=== PATIENT | female | born 1935 | race Caucasian/White ===

== ENCOUNTER 2021-08-28 10:51 | Emergency (ER) | payer OTHER, MEDICARE ==
--- OUTSIDE RECORDS SUMMARY | 2021-08-28 10:57 | XMS REPORT | Continuity of Care Document ---
:1935 Author Organization [facility] t Address [address] [place] [address] Dr. Silverman [address] [place] [address] Care Team Providers Name Role Phone EMANUEL Attending Clinician Unavailable Problems This patient has no known problems. Allergies, Adverse Reactions, Alerts This patient has no known allergies or adverse reactions. Medications This patient has no known medications. Procedures This patient has no known procedures. Encounters Start End Encounter Admission Attending Care Care Encounter Source Date/Time Date/Time Type Type Clinicians Facility Department ID 2021-05-30 2021-05-30 Outpatient [facility] [id number] [place] 00:00:00 00:00:[address] 2021-02-13 2021-02-13 Outpatient [facility] [id number] [place] 00:00:00 00:00:00 MOH[place] [address] 2020-09-21 2020-09-21 Outpatient [facility] [id number] [place] 00:00:00 00:00:[address] 2020-08-29 2020-08-29 Outpatient [facility] [id number] [place] 00:00:00 00:00:[address] 2019-12-14 2019-12-14 Outpatient [facility] [id number] [place] 00:00:00 00:00:00 [place] Results This patient has no known results.
--- NOTE | 2021-08-28 12:19 | RAD REPORT ---
EXAM DESCRIPTION: RAD - Chest Single View - 08/28/2021 12:04 pm CLINICAL HISTORY: COUGH Chest pain. COMPARISON: Chest Pa And Lat (2 Views) dated 02/24/2017 FINDINGS: Portable technique limits examination quality. Mild diffuse COPD is present. Small nodule is present left mid lung laterally, new since 2017. The he art is normal in size. Right-sided venous catheter has tip in the SVC. IMPRESSION: Small nodule is present in the left mid lung laterally, appearing new since 2017. Noneme rgent CT chest followup is recommended.
[2021-08-28] MEDS ORDERED: NA CHLORIDE 0.9% 1,000 ML ONE (12:26)
--- NOTE | 2021-08-28 12:27 | RAD REPORT ---
EXAM DESCRIPTION: RAD - C Spine Ap/Lat - 08/28/2021 12:04 pm CLINICAL HISTORY: PAIN COMPARISON: No comparisons FINDINGS: Cervical bodies are normal in height.2 mm degenerative anterolisthesis of C6 on 7.No fract ure or acute bony process seen.Moderate cervical degenerative change with disc thinning and posterior osteophyte involving the lower cervical levels. No prevertebral soft tissue thickening or other suspicious soft tissue finding. The odontoid is normal lateral masses are symmetric. Right-sided catheter tubing is present in the ne ck. IMPRESSION: Moderate lower cervical degenerative changes.
[2021-08-28 12:34] LABS: Absolute Lymphocytes (CBC) 1.1 K/uL (0.7-4.9); Hematocrit 49.7 % (36.0-45.0); Lymphocytes % 9.6 % (15.3-44.8); MPV 8.1 fL (7.6-11.3); RBC Red Blood Cell Count 5.71 M/uL (3.86-4.86)
[2021-08-28 12:45] LABS: Potassium 3.7 mmol/L (3.5-5.1)
[2021-08-28 13:07] LABS: SARS-COV-2 RT PCR POSITIVE (NEGATIVE)
[2021-08-28 13:57] LABS: Urine Blood Trace-intact (Negative); Urine Glucose Negative (Negative); Urine Protein Trace (Negative); Urine Specific Gravity >=1.030 (1.005-1.030)
--- NOTE | 2021-08-28 13:58 | ER ---
Nurse's Notes [facility] Name: Micaela Lancaster Age: 86 yrs Sex: Female : 1935 Arrival Date: 08/28/2021 Time: 10:58 Bed 12 Private MD: Froest Craig Diagnosis: SARS-associated coronavirus as the cause of diseases classified elsewhere;Dehydration;Myalgia Presentation: 08/28 11:11 Chief complaint: Patient states: No appetite for 3 days. Pain all over, fatigue, weak ll1 for 3 days. No known fever. No N/V/D. Coronavirus screen: Vaccine status: Patient reports receiving the 2nd dose of the covid vaccine. Client denies travel out of the [place] in the last 14 days. fatigue, muscle pain, Client presents with at least one sign or symptom that may indicate coronavirus-19. Standard/surgical mask placed on the client. Ebola Screen: Patient denies travel to an Ebola-affected area in the 21 days before illness onset. Initial Sepsis Screen: Does the patient meet any 2 criteria? No. Patient's initial sepsis screen is negative. Does the patient have a suspected source of infection? No. Patient's initial sepsis screen is negative. Risk Assessment: Do you want to hurt yourself or someone else? Patient reports no desire to harm self or others. Onset of symptoms was August 26, 2021. 11:11 Method Of Arrival: Wheelchair ll1 11:11 Acuity: ELVIRA 3 ll1 Triage Assessment: 14:13 General: Appears in no apparent distress. comfortable, Behavior is calm, cooperative, ll3 inappropriate for age. Pain: Complains of pain in base of the skull. 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 - Social history:: Smoking status: Patient denies any tobacco usage or history of. - Family history:: not pertinent. - Hospitalizations: : No recent hospitalization is reported. Screenin:12 Abuse screen: Denies threats or abuse. Nutritional screening: No deficits noted. ll3 Tuberculosis screening: No symptoms or risk factors identified. Fall Risk No IV (0 pts). Mental Status- Overestimates/Forgets Limitations (15 pts.). Total Shelton Fall Scale indicates No Risk (0-24 pts). Assessment: 11:15 General: See triage. ll3 12:40 Reassessment: Patient appears in no apparent distress at this time. No changes from ll3 previously documented assessment. Patient and/or family updated on plan of care and expected duration. Pain level reassessed. Patient is alert, oriented x 3, equal unlabored respirations, skin warm/dry/pink. Vital Signs: 11:11 BP 140 / 70; Pulse 70; Resp 17; Temp 97.8; Pulse Ox 100% ; Weight 58.06 kg; Height 5 ll1 ft. 3 in. (160.02 cm); Pain 6/10; 12:40 BP 156 / 64; Pulse 62; Resp 15; Pulse Ox 100% on R/A; ll3 11:11 Body Mass Index 22.67 (58.06 kg, 160.02 cm) ll1 ED Course: 10:58 Patient arrived in ED. mr 10:58 Forest Craig DO is Private Physician. mr 11:13 Triage completed. ll1 11:14 Arm band placed on. ll1 11:20 Tay Pacheco MD is Attending Physician. rn 11:44 David Garcia, KYLE is Primary Nurse. ll3 12:04 XRAY Chest (1 view) In Process Unspecified. EDMS 12:04 XRAY C Spine Ap/lat In Process Unspecified. EDMS 12:29 Initial lab(s) drawn, by az, sent to lab. Inserted saline lock: 20 gauge in right bd antecubital area, using aseptic technique. 12:33 IV discontinued, intact, bleeding controlled, Pressure dressing applied, IV ll3 infiltrated, D/C'd IV, pressure dressing applied. 14:12 Patient has correct armband on for positive identification. Bed in low position. Call ll3 light in reach. Side rails up X 1. Adult w/ patient. 14:12 No provider procedures requiring assistance completed. ll3 Administered Medications: 12:58 Discontinued: NS 0.9% 1000 ml IV at 1000 ml once ll3 12:27 Drug: NS 0.9% 1000 ml Route: IV; Rate: 1000 ml; Site: right antecubital; 5 14:00 Drug: Flexeril (cyclobenzaprine) 10 mg Route: PO; ll3 Outcome: 13:57 Discharge ordered by . rn 14:09 Patient left the ED. roderick 14:12 Discharged to home ambulatory, with family. ll3 14:12 Condition: stable 14:12 Discharge instructions given to patient, family, Instructed on discharge instructions, follow up and referral plans. medication usage, Demonstrated understanding of instructions, follow-up care, medications, Prescriptions given X 3. Signatures: Dispatcher [employer] EDMS Breanne Young Mary mr Nieto, Roman, MD MD rn Aurelia Saldana RN RN ll1 Thao Chowdhury RN RN 5 David Garcia RN RN ll3
--- NOTE | 2021-08-28 13:58 | EDPHYS ---
Physician Documentation [facility] Name: Micaela Lancaster Age: 86 yrs Sex: Female : 1935 Arrival Date: 08/28/2021 Time: 10:58 Bed 12 Private MD: Forest Craig ED Physician Tay Pacheco HPI: 08/28 12:04 This 86 yrs old Female presents to ER via Wheelchair with complaints of Weakness, rn generalized fatigue, pain. 12:04 Patient reports a few days of generalized weakness and fatigue, neck pain that radiates rn to the left shoulder, decreased appetite, and feelings of dehydration. No known sick contacts. No fever. No fall or trauma. States urine is dark.. Onset: The symptoms/episode began/occurred 4 day(s) ago. Severity of symptoms: At their worst the symptoms were moderate in the emergency department the symptoms have improved. The patient has not experienced similar symptoms in the past. The patient has not recently seen a physician. 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 - Social history:: Smoking status: Patient denies any tobacco usage or history of. - Family history:: not pertinent. - Hospitalizations: : No recent hospitalization is reported. ROS: 12:04 Constitutional: Negative for fever, chills, and weight loss, Eyes: Negative for injury, rn pain, redness, and discharge, ENT: Positive for congestion Neck: Negative for injury, pain, and swelling, Cardiovascular: Negative for chest pain, palpitations, and edema, Respiratory: Positive for cough and congestion Abdomen/GI: Positive for decreased appetite but negative for abdominal pain : Reports dark urine but no hematuria MS/Extremity: Negative for injury and deformity, Skin: Negative for injury, rash, and discoloration, Neuro: Positive for generalized weakness Exam: 12:04 Constitutional: This is a well developed, well nourished patient who is awake, alert, rn and in no acute distress. Head/Face: Normocephalic, atraumatic. Eyes: Periorbital areas with no swelling, redness, or edema. ENT: Dry mucous membranes, no stridor Cardiovascular: Regular rate and rhythm. No pulse deficits. Respiratory: Speaking full sentences, unlabored. No increased work of breathing, no retractions or nasal flaring. Abdomen/GI: Soft, non-tender Skin: Warm, dry, no cellulitis MS/ Extremity: Pulses equal, no cyanosis. Neurovascular intact. Full, normal range of motion. Equal circumference. Neuro: Awake and alert, GCS 15, oriented to person, place, time, and situation. Cranial nerves II-XII grossly intact. Motor strength 5/5 in all extremities. Sensory grossly intact. Cerebellar exam normal. Vital Signs: 11:11 BP 140 / 70; Pulse 70; Resp 17; Temp 97.8; Pulse Ox 100% ; Weight 58.06 kg; Height 5 ll1 ft. 3 in. (160.02 cm); Pain 6/10; 12:40 BP 156 / 64; Pulse 62; Resp 15; Pulse Ox 100% on R/A; ll3 11:11 Body Mass Index 22.67 (58.06 kg, 160.02 cm) ll1 MDM: 11:20 Patient medically screened. rn 13:55 Differential Diagnosis COVID, viral syndrome, cervical radiculopathy, myalgias, rn dehydration.. Data reviewed: vital signs, nurses notes, lab test result(s), radiologic studies, plain films, and as a result, I will discharge patient. Data interpreted: Pulse oximetry: on room air is 100 %. Interpretation: normal. Counseling: I had a detailed discussion with the patient and/or guardian regarding: the historical points, exam findings, and any diagnostic results supporting the discharge/admit diagnosis, lab results, radiology results, the need for outpatient follow up, to return to the emergency department if symptoms worsen or persist or if there are any questions or concerns that arise at home. Response to treatment: the patient's symptoms have mildly improved after treatment, and as a result, I will discharge patient. Special discussion: I discussed with the patient/guardian in detail that at this point there is no indication for admission to the hospital. It is understood, however, that if the symptoms persist or worsen the patient needs to return immediately for re-evaluation. ED course: Patient COVID-positive. Feels better. No oxygen requirement. No respiratory issues. Will discharge home with return precautions.. 08/28 11:38 Order name: CBC with Diff; Complete Time: 13:48 rn 08/28 11:38 Order name: Basic Metabolic Panel; Complete Time: 13:48 rn 08/28 11:38 Order name: Procalcitonin; Complete Time: 13:48 rn 08/28 11:38 Order name: COVID-19/FLU A+B (Document "Date of Onset" if Symptomatic); Complete Time: rn 13:48 08/28 11:38 Order name: Strep rn 08/28 11:38 Order name: Urine Microscopic Only rn 08/28 11:38 Order name: IV Start; Complete Time: 12:27 rn 08/28 11:38 Order name: XRAY Chest (1 view); Complete Time: 12:38 rn 08/28 11:38 Order name: XRAY C Spine Ap/lat; Complete Time: 12:38 rn 08/28 11:38 Order name: Urine Dipstick-Ancillary (obtain specimen); Complete Time: 14:08 rn 08/28 13:53 Order name: Throat Culture EDMS 08/28 13:57 Order name: Urine Dipstick-Ancillary EDMS Administered Medications: 12:58 Discontinued: NS 0.9% 1000 ml IV at 1000 ml once ll3 12:27 Drug: NS 0.9% 1000 ml Route: IV; Rate: 1000 ml; Site: right antecubital; jh5 14:00 Drug: Flexeril (cyclobenzaprine) 10 mg Route: PO; ll3 Disposition Summary: 08/28/21 13:57 Discharge Ordered Location: Home rn Problem: new rn Symptoms: have improved rn Condition: Stable rn Diagnosis - SARS-associated coronavirus as the cause of diseases classified elsewhere rn - Dehydration rn - Myalgia rn Followup: rn - With: Private Physician - When: As needed - Reason: Recheck today's complaints, Re-evaluation by your physician Discharge Instructions: - Discharge Summary Sheet rn - COVID-19 rn - 10 Things You Can Do to Manage Your COVID-19 Symptoms at Home - [facility] rn - Viral Illness, Adult rn Forms: - Medication Reconciliation Form rn - Thank You Letter rn - Antibiotic glazier metal furniture - Prescription Opioid Use rn Prescriptions: - Cyclobenzaprine 10 mg Oral Tablet - take 1 tablet by ORAL route every 8 hours As needed; 10 tablet; Refills: 0, rn Product Selection Permitted - Zithromax Z-Peng 250 mg Oral Tablet - take 1 tablet by ORAL route as directed for 5 days Day 1 - take two (2) tablets rn one time. Day 2, 3, 4 , 5 take one (1) tablet once daily.; 6 tablet; Refills: 0, Product Selection Permitted - Medrol (Peng) 4 mg Oral Tablets, Dose Pack - take 1 tablet by ORAL route as directed - follow package instructions; 1 rn packet; Refills: 0, Product Selection Permitted Signatures: Dispatcher [employer] EDTay King MD MD rn Lewis, Lynsay RN RN ll1 Thao Chowdhury RN RN jh5 David Garcia RN RN ll3
[2021-08-28] MEDS ORDERED: CYCLOBENZAPRINE 10 MG TAB ONE (14:01)
[2021-08-28 14:56] LABS: Urine Bacteria <20 /HPF (<20); Urine Mucus 2+ /HPF (NONE SEEN); Urine RBC <5 /HPF (NONE SEEN)
[2021-08-28 15:08] VITALS: TEMP 97.8; O2SAT 100
[2021-08-28 15:10] VITALS: BP 156/64
== END 2021-08-28 14:09 | disposition home or self-care (01) ==
LOC: ER 10:51
DX: U07.1 COVID-19 (principal); E86.0 Dehydration; M79.10 Myalgia, unspecified site; Z88.0 Allergy status to penicillin; Z85.3 Personal history of malignant neoplasm of breast
CPT/HCPCS: 87070; 85025; 80048; 36415; 87081; 84145; 0240U; 71045; 72040; 99284; J7030; 81003; 81015

== ENCOUNTER 2021-09-17 09:24 | Emergency (ER) | payer OTHER, MEDICARE ==
--- OUTSIDE RECORDS SUMMARY | 2021-09-17 09:27 | XMS REPORT | Continuity of Care Document ---
:1935 Author Organization [facility] t Address [address] [place] [address] Dr. Silverman [address] [place] [address] Care Team Providers Name Role Phone Craig Attending Clinician Unavailable EMANUEL Attending Clinician Unavailable Problems This patient has no known problems. Allergies, Adverse Reactions, Alerts This patient has no known allergies or adverse reactions. Medications This patient has no known medications. Procedures This patient has no known procedures. Encounters Start End Encounter Admission Attending Care Care Encounter Source Date/Time Date/Time Type Type Clinicians Facility Department ID 2021-09-12 Outpatient KAMILLE Craig [facility] 12:10:[facility] [id number] [facility] 2021-09-[address] RafaANGEL [facility] 11:17:[facility] [place] [id number] [facility] 2021-09-12 Outpatient KAMILLE Craig [facility] 11:04:52 [place] [id number] [facility] 2021-09-[address] [facility] [id number] [facility] 10:57:49 [place] [id number] [facility] 2021-05-30 2021-05-30 Outpatient [facility] [id number] [place] 00:00:00 00:00:[address] 2021-02-13 2021-02-13 Outpatient [facility] [id number] [place] 00:00:00 00:00:[address] 2020-09-21 2020-09-21 Outpatient [facility] [id number] [place] 00:00:00 00:00:[address] 2020-08-29 2020-08-29 Outpatient [facility] [id number] [place] 00:00:00 00:00:[address] 2019-12-14 2019-12-14 Outpatient JERALD, [facility] [id number] [place] 00:00:00 00:00:00 SHADI wasserman Results This patient has no known results.
[2021-09-17] MEDS ORDERED: NA CHLORIDE 0.9% 1,000 ML ONE (10:08)
--- NOTE | 2021-09-17 10:16 | RAD REPORT ---
EXAM DESCRIPTION: CT - Head Brain Wo Cont - 09/17/2021 10:03 am CLINICAL HISTORY: AMS, hx of shunt Headache, drowsiness COMPARISON: No comparisons TECHNIQUE: All CT scans are performed using dose optimization technique as appropriate and may inclu de automated exposure control or mA/KV adjustment according to patient size. FINDINGS: No acute hemorrhage or extra-axial fluid collection is seen. Ventriculostomy tube is prese nt with the tube terminating in the left frontal region. Moderate brain atrophy. Ventricular system i s moderately prominent but there is no comparative imaging to assess for change. The paranasal sinuses and mastoids are clear. The calvarium is intact. IMPRESSION: Ventriculostomy tube is in place. There is moderate dilatation of the ventricular syste m present, however, it is difficult to assess the acuity of this finding given the lack of comparativ e imaging available.
[2021-09-17 10:55] LABS: Urine Blood Trace-intact (Negative); Urine Glucose Negative (Negative); Urine Protein 1+ (Negative); Urine Specific Gravity 1.025 (1.005-1.030)
[2021-09-17 10:56] LABS: Absolute Lymphocytes (CBC) 1.2 K/uL (0.7-4.9); Hematocrit 43.4 % (36.0-45.0); Lymphocytes % 31.3 % (15.3-44.8); MPV 8.5 fL (7.6-11.3); RBC Red Blood Cell Count 5.01 M/uL (3.86-4.86)
[2021-09-17 11:10] LABS: Potassium 4.2 mmol/L (3.5-5.1)
[2021-09-17 11:25] LABS: Urine Bacteria <20 /HPF (<20); Urine Mucus 2+ /HPF (NONE SEEN); Urine RBC <5 /HPF (NONE SEEN)
[2021-09-17] MEDS ORDERED: CIPROFLOXACIN 400mg IV 400 MG/200 ML BAG IV ONE (11:32)
--- NOTE | 2021-09-17 13:13 | ER ---
Nurse's Notes [facility] Name: Micaela Lancaster Age: 86 yrs Sex: Female : 1935 Arrival Date: 09/17/2021 Time: 09:27 Bed 4 Private MD: Forest Craig Diagnosis: Altered mental status, unspecified Presentation: 09/17 09:38 Chief complaint: Patient states: Confusion that began a few days ago, became worse last ss night. Daughter believes that patient is dehydrated and may have a UTI because her urine smells foul. Coronavirus screen: Client denies travel out of the [place] in the last 14 days. Ebola Screen: Patient denies exposure to infectious person. Patient denies travel to an Ebola-affected area in the 21 days before illness onset. Initial Sepsis Screen: Does the patient meet any 2 criteria? No. Patient's initial sepsis screen is negative. Does the patient have a suspected source of infection? No. Patient's initial sepsis screen is negative. Risk Assessment: Do you want to hurt yourself or someone else? Patient reports no desire to harm self or others. Onset of symptoms was August 2021. 09:38 Method Of Arrival: Ambulatory ss 09:38 Acuity: ELVIRA 3 ss Historical: - Allergies: 09:43 PENICILLINS; ss - PMHx: 09:43 Dementia; ss - PSHx: 09:43 breast CA L side; hysterectomy; brain shunt; ss - Immunization history:: Adult Immunizations unknown. - Social history:: Smoking status: Patient denies any tobacco usage or history of. - Family history:: not pertinent. - Hospitalizations: : No recent hospitalization is reported. Screenin:57 Abuse screen: Denies threats or abuse. Denies injuries from another. Nutritional ph screening: No deficits noted. Tuberculosis screening: No symptoms or risk factors identified. Fall Risk No fall in past 12 months (0 pts). No secondary diagnosis (0 pts). IV access (20 points). Ambulatory Aid- None/Bed Rest/Nurse Assist (0 pts). Gait- Weak (10 pts.). Mental Status- Overestimates/Forgets Limitations (15 pts.). Total Shelton Fall Scale indicates High Risk Score (45 or more points). Fall prevention measures have been instituted. Side Rails Up X 2 Placed Close to Nursing Station Frequent Obs/Assessments Occuring Family Present and informed to notify staff if the need to leave the bedside As available patient and family educated on Fall Prevention Program and Strategies. Assessment: 09:58 Reassessment: Pt taken to CT via stretcher. ph 10:36 General: Appears in no apparent distress. comfortable, slender, well groomed, Behavior ph is cooperative. Pain: Denies pain. Neuro: Level of Consciousness is awake, alert, obeys commands, Oriented to person. Cardiovascular: Capillary refill < 3 seconds in bilateral fingers Patient's skin is warm and dry. Respiratory: Airway is patent Respiratory effort is even, unlabored. Derm: Skin is fragile, is thin, Skin is pink, warm \T\ dry. Musculoskeletal: Circulation, motion, and sensation intact. Range of motion: intact in all extremities. 11:24 Reassessment: Patient appears in no apparent distress at this time. Patient and/or ph family updated on plan of care and expected duration. Pain level reassessed. Pt awake and alert, remains confused, VSS, daughter at bedside. 11:55 Reassessment: Patient appears in no apparent distress at this time. Patient and/or ph family updated on plan of care and expected duration. Pain level reassessed. 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 12:28 Reassessment: Patient appears in no apparent distress at this time. No changes from ph previously documented assessment. Patient and/or family updated on plan of care and expected duration. Pain level reassessed. 13:30 Reassessment: Patient appears in no apparent distress at this time. No changes from ph previously documented assessment. Patient and/or family updated on plan of care and expected duration. Pain level reassessed. 15:06 Reassessment: Patient appears in no apparent distress at this time. Patient and/or ph family updated on plan of care and expected duration. Pain level reassessed. Attempted to call report to Julio, receiving nurse on break, will call back in 15 minutes. 15:40 Reassessment: Patient appears in no apparent distress at this time. No changes from ph previously documented assessment. Patient and/or family updated on plan of care and expected duration. Pain level reassessed. Report called to Palak WRIGHT at [facility]. 16:30 Reassessment: Patient appears in no apparent distress at this time. No changes from ph previously documented assessment. Patient and/or family updated on plan of care and expected duration. Pain level reassessed. 17:41 Reassessment: Patient appears in no apparent distress at this time. Patient and/or ph family updated on plan of care and expected duration. Pain level reassessed. Pt awake and alert, remains confused, [facility] at bedside for transfer to [facility]. Vital Signs: 10:29 BP 104 / 61; Pulse 65; Resp 18; Pulse Ox 100% on R/A; ph 11:37 BP 124 / 70; Pulse 58; Resp 18; Pulse Ox 98% on R/A; ph 12:28 BP 127 / 62; Pulse 58; Resp 16; Pulse Ox 98% on R/A; ph 13:30 BP 128 / 61; Pulse 58; Resp 16; Pulse Ox 98% on R/A; ph 15:07 BP 123 / 65; Pulse 61; Resp 18; Pulse Ox 98% on R/A; ph 16:00 BP 118 / 70; Pulse 60; Resp 18; Pulse Ox 97% on R/A; ph 17:20 BP 120 / 64; Pulse 58; Resp 18; Temp 97.6; Pulse Ox 99% on R/A; ph ED Course: 09:27 Patient arrived in ED. as 09:27 Forest Craig DO is Private Physician. as 09:34 Tay Pacheco MD is Attending Physician. rn 09:43 Triage completed. ss 09:43 Arm band placed on right wrist. ss 09:45 Gauri Verde, KYLE is Primary Nurse. ph 09:58 Patient has correct armband on for positive identification. Placed in gown. Bed in low ph position. Call light in reach. Side rails up X 1. panel assembler on. Pulse ox on. NIBP on. Door closed. Noise minimized. Warm blanket given. 10:03 CT Head Brain wo Cont In Process Unspecified. EDMS 10:37 Missed attempt(s): 22 gauge in left hand. Bleeding controlled, band aid applied, ph catheter tip intact. 11:00 Inserted saline lock: 22 gauge in right antecubital area, using aseptic technique. ph 13:21 initiated transfer to [facility]. bd 13:45 XRAY Chest (1 view) In Process Unspecified. EDMS 15:59 pt accepted in transfer to [facility] by dr Monique, admin approval given by juliocesar Espana. 17:44 No provider procedures requiring assistance completed. Patient transferred, IV remains ph in place. Administered Medications: 11:37 Drug: NS 0.9% 1000 ml Route: IV; Rate: 1000 ml; Site: right antecubital; ph 13:30 Follow up: Response: No adverse reaction; IV Status: Completed infusion; IV Intake: ph 1000ml 11:37 Drug: Cipro (ciprofloxacin) 400 mg Volume: 200 ml; Route: IVPB; Infused Over: 60 mins; ph Site: right antecubital; 12:45 Follow up: Response: No adverse reaction; IV Status: Completed infusion ph Intake: 13:30 IV: 1000ml; Total: 1000ml. ph Outcome: 13:12 ER care complete, transfer ordered by . rn 17:44 Transferred by ground EMS to [facility], Transfer form completed. X-rays ph sent w/ patient. 17:44 Condition: stable 17:45 Patient left the ED. ph Signatures: Dispatcher [employer] EDMS Breanne Young Amelia as Nieto, Roman, MD MD rn Smirch, Shelby, RN RN Gauri Verde RN RN ph
--- NOTE | 2021-09-17 13:13 | EDPHYS ---
Physician Documentation [facility] Name: Micaela Lancaster Age: 86 yrs Sex: Female : 1935 Arrival Date: 09/17/2021 Time: 09:27 Bed 4 Private MD: [place] [facility] ED Physician Tay Pacheco HPI: 09/17 09:46 This 86 yrs old Female presents to ER via Ambulatory with complaints of Altered Mental rn Status, Urinary Problem. 09:46 The patient presents with confusion, decreased mental status. Onset: The rn symptoms/episode began/occurred 3 day(s) ago. Possible causes: unknown. Associated signs and symptoms: Pertinent positives: confusion, Pertinent negatives: abdominal pain, chest pain, seizure, shortness of breath, vomiting. Current symptoms: In the emergency department the patient's symptoms are unchanged from the initial presentation. The patient has not experienced similar symptoms in the past. The patient has been recently seen at the [facility] Emergency Department. Daughter reports patient has been confused, worse over the last 3 days, foul-smelling urine, reports headache and lower back pain. Patient is ambulatory. No vomiting. Has a history of shunt placement 4 years ago and has done well. Recently seen here 3 weeks ago and was Covid positive with minimal symptoms. Denies any cough or shortness of breath. No abdominal pain. No vomiting or diarrhea. Daughter states just not eating or drinking and feels like she is dehydrated.. Historical: - Allergies: 09:43 PENICILLINS; ss - PMHx: 09:43 Dementia; ss - PSHx: 09:43 breast CA L side; hysterectomy; brain shunt; ss - Immunization history:: Adult Immunizations unknown. - Social history:: Smoking status: Patient denies any tobacco usage or history of. - Family history:: not pertinent. - Hospitalizations: : No recent hospitalization is reported. ROS: 09:46 Constitutional: Negative for fever, chills, and weight loss, Eyes: Negative for injury, rn pain, redness, and discharge, Neck: Negative for injury, pain, and swelling, Cardiovascular: Negative for chest pain, palpitations, and edema, Respiratory: Negative for shortness of breath, cough, wheezing, and pleuritic chest pain, Abdomen/GI: Negative for abdominal pain, nausea, vomiting, diarrhea, and constipation, Back: Negative for injury : Negative for injury, bleeding, discharge, and swelling, MS/Extremity: Negative for injury and deformity, Skin: Negative for injury, rash, and discoloration, Neuro: Negative for numbness, tingling, and seizure. Exam: 09:46 Constitutional: This is a well developed, well nourished patient who is awake, alert, rn and in no acute distress. Head/Face: Normocephalic, atraumatic. Eyes: Periorbital areas with no swelling, redness, or edema. ENT: Dry mucous membranes Cardiovascular: Regular rate and rhythm. No pulse deficits. Respiratory: Speaking full sentences, unlabored. No increased work of breathing, no retractions or nasal flaring. Abdomen/GI: Soft, non-tender Skin: Warm, dry with normal turgor. Normal color with no rashes, no lesions, and no evidence of cellulitis. MS/ Extremity: Pulses equal, no cyanosis. Neurovascular intact. Full, normal range of motion. Equal circumference. Neuro: Awake and alert, GCS 15, oriented to person, place, not time. Cranial nerves II-XII grossly intact. Motor strength 4/5 in all extremities. Sensory grossly intact. Cerebellar exam normal. Gait is slow but able to ambulate to room. Vital Signs: 10:29 BP 104 / 61; Pulse 65; Resp 18; Pulse Ox 100% on R/A; ph 11:37 BP 124 / 70; Pulse 58; Resp 18; Pulse Ox 98% on R/A; ph 12:28 BP 127 / 62; Pulse 58; Resp 16; Pulse Ox 98% on R/A; ph 13:30 BP 128 / 61; Pulse 58; Resp 16; Pulse Ox 98% on R/A; ph 15:07 BP 123 / 65; Pulse 61; Resp 18; Pulse Ox 98% on R/A; ph 16:00 BP 118 / 70; Pulse 60; Resp 18; Pulse Ox 97% on R/A; ph 17:20 BP 120 / 64; Pulse 58; Resp 18; Temp 97.6; Pulse Ox 99% on R/A; ph MDM: 09:34 Patient medically screened. rn 13:10 Differential Diagnosis: electrolyte abnormality, pneumonia, UTI, volume depletion, rn shunt malfunction, dehydration, UTI. Data reviewed: vital signs, nurses notes, lab test result(s), radiologic studies, CT scan, plain films, and as a result, I will admit patient. Counseling: I had a detailed discussion with the patient and/or guardian regarding: the historical points, exam findings, and any diagnostic results supporting the discharge/admit diagnosis, lab results, radiology results, the need for further work-up and treatment in the hospital, the need to transfer to another facility. ED course: No clear etiology to explain AMS, urine micro clean, COVID neg, labs unremarkable, afebrile with normal vitals. SPoke with her neurologist at [facility] who states if unable to find etiology to explain her altered mental status agrees with transfer to [facility] given ventricular dilatation and her neurologist and neurosurgeons are at that location. Daughter agrees with this and transfer initiated. 14:08 ED course: Accepted for transfer to [facility]. . rn 09/17 09:41 Order name: CBC with Diff; Complete Time: 11:17 rn 09/17 09:41 Order name: Basic Metabolic Panel; Complete Time: 11:17 rn 09/17 09:41 Order name: Urine Culture rn 09/17 09:41 Order name: Urine Microscopic Only; Complete Time: 11:28 rn 09/17 09:41 Order name: Blood Culture Adult (2) rn 09/17 09:41 Order name: Procalcitonin; Complete Time: 11:48 rn 09/17 09:41 Order name: IV Start; Complete Time: 11:24 rn 09/17 09:41 Order name: Urine Dipstick-Ancillary (obtain specimen); Complete Time: 11:24 rn 09/17 09:41 Order name: SARS-COV-2 RT PCR (Document "Date of Onset" if Symptomatic); Complete Time: rn 13:10 09/17 09:41 Order name: CT Head Brain wo Cont; Complete Time: 10:24 rn 09/17 10:55 Order name: Urine Dipstick-Ancillary; Complete Time: 11:17 EDAR 09/17 12:41 Order name: XRAY Chest (1 view); Complete Time: 14:02 rn Administered Medications: 11:37 Drug: NS 0.9% 1000 ml Route: IV; Rate: 1000 ml; Site: right antecubital; ph 13:30 Follow up: Response: No adverse reaction; IV Status: Completed infusion; IV Intake: ph 1000ml 11:37 Drug: Cipro (ciprofloxacin) 400 mg Volume: 200 ml; Route: IVPB; Infused Over: 60 mins; ph Site: right antecubital; 12:45 Follow up: Response: No adverse reaction; IV Status: Completed infusion ph Disposition Summary: 09/17/21 13:12 Transfer Ordered Transfer Location: [facility] rn Reason: Higher level of care rn Condition: Stable rn Problem: new rn Symptoms: have improved rn Accepting Physician: (09/17/21 17:45) ph Diagnosis - Altered mental status, unspecified rn Forms: - Medication Reconciliation Form rn - SBAR form rn Signatures: Dispatcher [employer] EDTay King MD MD rn Smirch, Shelby, RN RN ss Hall, Patricia, RN RN ph Corrections: (The following items were deleted from the chart) 17:45 13:12 rn ph
--- NOTE | 2021-09-17 13:50 | RAD REPORT ---
EXAM DESCRIPTION: RAD - Chest Single View - 09/17/2021 1:43 pm CLINICAL HISTORY: ams COMPARISON: Chest Single View dated 08/28/2021; Chest Pa And Lat (2 Views) dated 02/24/2017; Head Brai n Wo Cont dated 09/17/2021 FINDINGS: Lines: DATA [employer]CH[employer]ICIAN shunt. Lungs: No evidence of edema or pneumonia. Pleural: No significant pleural effusions or pneumothorax. Cardiac: The heart size is within normal limits. Bones: No acute fractures. Other: IMPRESSION: No acute cardiopulmonary disease.
[2021-09-17 18:01] VITALS: BP 120/64; TEMP 97.6; O2SAT 99
== END 2021-09-17 17:45 | disposition short-term general hospital (02) ==
LOC: ER 09:24
DX: R41.82 Altered mental status, unspecified (principal); F03.90 Unspecified dementia, unspecified severity, without behavioral disturbance, psychotic disturbance, mood disturbance, and anxiety; Z88.0 Allergy status to penicillin; Z98.2 Presence of cerebrospinal fluid drainage device; Z85.3 Personal history of malignant neoplasm of breast; Z90.710 Acquired absence of both cervix and uterus
CPT/HCPCS: 87040 ×2; 87088; 85025; 87086; 80048; 36415; 84145; 70450; 71045; U0003; J7030; J0744; 81003; 81015; 96361; 96365; 99285